=== PATIENT | female | born 1975 | race Caucasian/White ===

== ENCOUNTER 2017-09-01 15:52 | Emergency (ER) | payer MEDICAID ==
--- NOTE | 2017-09-01 16:15 | EDM.PDOC ---
ED HPI GENERAL MEDICAL PROBLEM - General Stated Complaint: CONFUSION,CHANGE IN TALKING Time Seen by Provider: 09/01/17 15:52 Source of Information: Reports: Patient, Family History Limitations: Reports: Altered Mental Status - History of Present Illness INITIAL COMMENTS - FREE TEXT/NARRATIVE: 41 y.o.w.f Just released from [facility] came to te ed with her SO deu to pain all over and feeling not herself, Pt's care was taken over by Dr. Hinojosa due to shift changes at 7 am 09/01/2017 Onset Date: 09/01/17 Onset Time: 05:00 Duration: Hour(s):, Getting Worse, Intermittent Location: Reports: Head Severity: Moderate Improves with: Reports: Rest Worsens with: Reports: Movement Context: Reports: Other (Drugs?) Associated Symptoms: Reports: Confusion - Related Data Allergies Allergy/AdvReac Type Severity Reaction Status Date / Time No Known Allergies Allergy Verified 09/01/17 16:19 Home Meds: Home Meds ALPRAZolam [Alprazolam] 1 mg PO TID 09/01/17 [History] Gabapentin [Neurontin] 800 mg PO QID 09/01/17 [History] QUEtiapine Fumarate [Quetiapine Fumarate] 200 mg PO DAILY 09/01/17 [History] ED ROS GENERAL - Review of Systems Review Of Systems: See Below Constitutional: Reports: Malaise, Weakness HEENT: Reports: No Symptoms Respiratory: Reports: No Symptoms Cardiovascular: Reports: No Symptoms Endocrine: Reports: No Symptoms GI/Abdominal: Reports: No Symptoms : Reports: No Symptoms Musculoskeletal: Reports: Muscle Pain (generalized ) Skin: Reports: No Symptoms Neurological: Reports: No Symptoms Psychiatric: Reports: Depression Hematologic/Lymphatic: Reports: No Symptoms Immunologic: Reports: No Symptoms - Physical Exam Exam: See Below Exam Limited By: Altered Mental Status General Appearance: Alert, No Apparent Distress, Lethargic, Obese Eye Exam: Bilateral Eye: Normal Inspection Ears: Normal External Exam, Normal Canal Nose: Normal Inspection, Normal Mucosa Throat/Mouth: Normal Lips, Normal Voice, No Airway Compromise, Other (dry mucosal membrane) Head Exam: Atraumatic, Normocephalic Neck: Normal Inspection, Supple, Non-Tender Respiratory/Chest: No Respiratory Distress, Lungs Clear, Normal Breath Sounds, No Accessory Muscle Use, Chest Non-Tender Cardiovascular: Normal Peripheral Pulses, Regular Rate, Rhythm, No Edema, No Rub GI/Abdominal: Normal Bowel Sounds, Soft, Non-Tender, No Organomegaly (Female) Exam: Deferred Rectal (Female) Exam: Deferred Neuro Exam (Abbreviated): Alert, Confused Back Exam: Normal Inspection, Full Range of Motion Extremities: Normal Inspection, Normal Range of Motion, Non-Tender Psychiatric: Depressed Mood, Flat Affect Skin Exam: Warm, Dry Course - Vital Signs Last Recorded V/S: Last Vital Signs Temp 36.5 C 09/01/17 15:52 Pulse 89 09/01/17 15:52 Resp 12 09/01/17 19:00 BP 101/57 L 09/01/17 19:00 Pulse Ox 100 09/01/17 19:00 - Orders/Labs/Meds Labs: Laboratory Tests 09/01/17 09/01/17 09/01/17 Range/Units 16:20 16:20 16:25 WBC 5.7 (4.5-12.0) X10-3/uL RBC 3.68 (3.23-5.20) x10(6)uL Hgb 11.5 (11.5-15.5) g/dL Hct 33.9 (30.0-51.3) % MCV 92.2 (80-96) fL MCH 31.4 (27.7-33.6) pg MCHC 34.0 (32.2-35.4) g/dL RDW 13.7 (11.5-15.5) % Plt Count 378 H (125-369) X10(3)uL MPV 6.6 L (7.4-10.4) fL Neut % (Auto) 53.3 (46-82) % Lymph % (Auto) 28.4 (13-37) % [place] % (Auto) 10.0 (4-12) % Eos % (Auto) 8 H (1.0-5.0) % Baso % (Auto) 1 (0-2) % Neut # (Auto) 3.1 (1.6-8.3) # Lymph # (Auto) 1.6 (0.6-5.0) # [place] # (Auto) 0.6 (0.0-1.3) # Eos # (Auto) 0.4 (0.0-0.8) # Baso # (Auto) 0.0 (0.0-0.2) # Sodium (135-145) mmol/L Potassium (3.5-5.3) mmol/L Chloride (100-110) mmol/L Carbon Dioxide (21-32) mmol/L BUN (7-18) mg/dL Creatinine (0.55-1.02) mg/dL Est Cr Clr Drug Dosing mL/min Estimated GFR (MDRD) (>60) BUN/Creatinine Ratio (9-20) Glucose (80-116) mg/dL Calcium (8.6-10.2) mg/dL HCG, Quant (<5) mIU/mL Urine Color Yellow (YELLOW) Urine Appearance Clear (CLEAR) Urine pH 5.0 (5.0-6.5) Ur Specific [place] 1.005 L (1.010-1.025) Urine Protein Negative (NEGATIVE) mg/dL Urine Glucose (UA) Normal (NEGATIVE) mg/dL Urine Ketones Negative (NEGATIVE) mg/dL Urine Occult Blood Negative (NEGATIVE) Urine Nitrite Negative (NEGATIVE) Urine Bilirubin Negative (NEGATIVE) Urine Urobilinogen Normal (NEGATIVE) mg/dL Ur Leukocyte Esterase Small H (NEGATIVE) Urine RBC 0-5 (0) Urine WBC 5-10 (0) Ur Squamous Epith Cells Few H (NS,R,O) Urine Bacteria Few H (NS) Salicylates (2.8-20.0) mg/dL Urine Opiates Screen Negative (NEGATIVE) Ur Oxycodone Screen Negative (NEGATIVE) Ur Propoxyphene Screen Negative (NEGATIVE) Acetaminophen (10-30) ug/mL Ur Barbituates Screen Negative (NEGATIVE) Ur Tricyclics Screen Negative (NEGATIVE) Ur Phencyclidine Scrn Negative (NEGATIVE) Ur Amphetamine Screen Negative (NEGATIVE) Urine MDMA Screen Negative (NEGATIVE) U Benzodiazepines Scrn Positive H (NEGATIVE) U Cocaine Metab Screen Negative (NEGATIVE) U Marijuana (THC) Screen Negative (NEGATIVE) Ethyl Alcohol (<0.03) % 09/01/17 09/01/17 Range/Units 16:25 16:25 WBC (4.5-12.0) X10-3/uL RBC (3.23-5.20) x10(6)uL Hgb (11.5-15.5) g/dL Hct (30.0-51.3) % MCV (80-96) fL MCH (27.7-33.6) pg MCHC (32.2-35.4) g/dL RDW (11.5-15.5) % Plt Count (125-369) X10(3)uL MPV (7.4-10.4) fL Neut % (Auto) (46-82) % Lymph % (Auto) (13-37) % [place] % (Auto) (4-12) % Eos % (Auto) (1.0-5.0) % Baso % (Auto) (0-2) % Neut # (Auto) (1.6-8.3) # Lymph # (Auto) (0.6-5.0) # [place] # (Auto) (0.0-1.3) # Eos # (Auto) (0.0-0.8) # Baso # (Auto) (0.0-0.2) # Sodium 137 (135-145) mmol/L Potassium 3.6 (3.5-5.3) mmol/L Chloride 99 L (100-110) mmol/L Carbon Dioxide 31 (21-32) mmol/L BUN 12 (7-18) mg/dL Creatinine 0.8 (0.55-1.02) mg/dL Est Cr Clr Drug Dosing 88.38 mL/min Estimated GFR (MDRD) > 60 (>60) BUN/Creatinine Ratio 15.0 (9-20) Glucose 88 (80-116) mg/dL Calcium 8.7 (8.6-10.2) mg/dL HCG, Quant < 1 L (<5) mIU/mL Urine Color (YELLOW) Urine Appearance (CLEAR) Urine pH (5.0-6.5) Ur Specific [place] (1.010-1.025) Urine Protein (NEGATIVE) mg/dL Urine Glucose (UA) (NEGATIVE) mg/dL Urine Ketones (NEGATIVE) mg/dL Urine Occult Blood (NEGATIVE) Urine Nitrite (NEGATIVE) Urine Bilirubin (NEGATIVE) Urine Urobilinogen (NEGATIVE) mg/dL Ur Leukocyte Esterase (NEGATIVE) Urine RBC (0) Urine WBC (0) Ur Squamous Epith Cells (NS,R,O) Urine Bacteria (NS) Salicylates 3.5 (2.8-20.0) mg/dL Urine Opiates Screen (NEGATIVE) Ur Oxycodone Screen (NEGATIVE) Ur Propoxyphene Screen (NEGATIVE) Acetaminophen < 2 L (10-30) ug/mL Ur Barbituates Screen (NEGATIVE) Ur Tricyclics Screen (NEGATIVE) Ur Phencyclidine Scrn (NEGATIVE) Ur Amphetamine Screen (NEGATIVE) Urine MDMA Screen (NEGATIVE) U Benzodiazepines Scrn (NEGATIVE) U Cocaine Metab Screen (NEGATIVE) U Marijuana (THC) Screen (NEGATIVE) Ethyl Alcohol < 0.03 (<0.03) % Meds: Medications Discontinued Medications Generic Name Dose Route Start Last Admin Trade Name Freq PRN Reason Stop Dose Admin Sodium Chloride 1,000 mls @ 999 mls/hr 09/01/17 16:16 09/01/17 17:10 Normal Saline IV 09/01/17 17:16 999 mls/hr .BOLUS ONE Administration Sodium Chloride 1,000 mls @ 999 mls/hr 09/01/17 18:46 09/01/17 18:11 Normal Saline IV 09/01/17 19:46 999 mls/hr .BOLUS ONE Administration Ketorolac Tromethamine 30 mg 09/01/17 16:18 09/01/17 18:56 Toradol IVPUSH 09/01/17 16:19 30 mg ONETIME ONE Administration Ketorolac Tromethamine Confirm 09/01/17 18:54 09/01/17 18:59 Toradol Administered 09/01/17 18:55 Not Given Dose 30 mg .ROUTE .STK-MED ONE Sodium Chloride 10 ml 09/01/17 17:11 09/01/17 17:10 Saline Flush FLUSH 10 ml ASDIRECTED PRN Administration Keep Vein Open Departure - Departure Time of Disposition: 20:05 Disposition: Home, Self-Care 01 Condition: Good - Discharge Information Referrals: PCP,None [Primary Care Provider] - Forms: ED Department Discharge Care Plan Goals: Follow up with regular
[2017-09-01] MEDS ORDERED: Sodium Chloride 0.9% 1,000 ML IV ONE ×2 (16:16→18:46)
[2017-09-01] MEDS ORDERED: Ketorolac 30 MG/ML SDV IVPUSH ONE (16:18)
[2017-09-01] MEDS ORDERED: Sodium Chloride 0.9% 10 ML Syringe FLUSH PRN (17:11)
[2017-09-01 17:19] LABS: ACETAMINOPHEN < 2 ug/mL (10-30)
[2017-09-01] MEDS ORDERED: Ketorolac 30 MG/ML SDV ONE (18:54)
--- NOTE | 2017-09-03 07:33 | ER ---
DATE SEEN: 09/01/2017 CHIEF COMPLAINT: Alteration of mental status. HISTORY OF PRESENT ILLNESS: This is a 41-year-old female, who was brought in because of garbled, confused speech and generalized body aches that was noticed today. [facility] for [facility] support related legal problems, but presented with not making sense and garbled speech. By the time I saw her, her mind was clearing up some. She denies taking any medication overdose and does report that she might have taken some Windex, but this was after she was noted to be confused. She denies taking an extra dose of Xanax or the Windex. She denies using drugs. PAST MEDICAL HISTORY: Allergic rhinitis. REVIEW OF SYSTEMS: She complains of right breast lump and pain. Denies fever, shortness of breath, seizures, rash, or sore throat. MEDICATIONS: 1. Gabapentin. 2. Lorazepam. PHYSICAL EXAMINATION: VITAL SIGNS: Blood pressure 101/56, respiratory rate is normal, oxygenation 94% on room air. HEENT negative. NECK: Supple. ABDOMEN: Soft. BREAST: There is tenderness on the right upper quadrant of the right breast and a small subcutaneous mass. NEUROLOGIC: Normal, except mild dysarthria. No focal deficits. Cranial nerves 2 through 12 grossly intact. LAB STUDIES: Normal labs including a negative test. Positive urine for benzodiazepines. A CT head showed inflammation of the sinuses. IMPRESSION: 1. Alteration of sensorium, improved. 2. Breast lump. PLAN: The patient was discharged after 1 L of normal saline. Advised to use ibuprofen, Tylenol for pain. I also advised her to make an appointment with her primary care physician within this week. She has just moved into town and numbers will be provided to call either [facility] or [place] to obtain primary care. /[phone] [id number]
== END 2017-09-01 20:05 | disposition home or self-care (01) ==
LOC: FB.ED 15:52
DX: R41.82 Altered mental status, unspecified (principal); N63.11 Unspecified lump in the right breast, upper outer quadrant; Z79.899 Other long term (current) drug therapy
CPT/HCPCS: 36415; 70450; 80048; 80305; 81001; 84702; 85025; 96361; 96374; 99285; G0480; J1885; J7030; J7050

== ENCOUNTER 2018-04-26 15:16 | Emergency (ER) | payer MEDICAID ==
[2018-04-26] MEDS ORDERED: HYDROmorphone 2 MG/ML SDV IM ONE (15:31)
--- NOTE | 2018-04-26 15:37 | EDM.PDOC ---
ED HPI GENERAL MEDICAL PROBLEM - General Time Seen by Provider: 04/26/18 15:16 Source of Information: Reports: Patient, Family History Limitations: Reports: No Limitations - History of Present Illness INITIAL COMMENTS - FREE TEXT/NARRATIVE: 42 y.o.w.f came with her SO to the ed because of blood extruding from her right nipple after undergoing a breast Bx last Thursday at . She has extreme right breast tenderness as well. She was told she has most likely advance breast CA with LK at her right axilla, pathology results are pending, however. No N/V/D no Dizziness or any other acute medical issues. BP 115/54 RR 18 Pulse ox 98% on RA Temp 37.3 Pulse 110 Onset Date: 04/23/18 Onset Time: 21:00 Duration: Day(s):, Intermittent Location: Reports: Chest (right breast) Quality: Reports: Burning, Dull, Stabbing, Throbbing Severity: Moderate Improves with: Reports: Cold Therapy, Medication Worsens with: Reports: Movement Context: Reports: Trauma (right brest Bx 04/23/2018) Associated Symptoms: Reports: Other (blod was extruding for her right nipple.) - Related Data Allergies Allergy/AdvReac Type Severity Reaction Status Date / Time No Known Allergies Allergy Verified 04/26/18 15:33 Home Meds: Home Meds ALPRAZolam [Alprazolam] 1 mg PO TID 09/01/17 [History] Gabapentin [Neurontin] 800 mg PO QID 09/01/17 [History] Acetaminophen/oxyCODONE [Percocet 325-5 MG] 1 each PO Q6HR PRN #14 tab 04/26/18 [Rx] PARoxetine HCl [Paxil] 40 mg PO BID 04/26/18 [History] 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: Musculoskeletal History: Reports: Back Pain, Chronic Psychiatric History: Reports: Anxiety, Depression Social & Family History - Family History Family Medical History: Noncontributory - Caffeine Use Caffeine Use: Reports: Soda ED ROS GENERAL - Review of Systems Review Of Systems: See Below Constitutional: Reports: No Symptoms HEENT: Reports: No Symptoms Respiratory: Reports: No Symptoms Cardiovascular: Reports: No Symptoms Endocrine: Reports: No Symptoms GI/Abdominal: Reports: No Symptoms : Reports: No Symptoms Musculoskeletal: Reports: No Symptoms Skin: Reports: No Symptoms Neurological: Reports: No Symptoms Psychiatric: Reports: No Symptoms Hematologic/Lymphatic: Reports: No Symptoms Immunologic: Reports: No Symptoms ED EXAM, SKIN/RASH Exam: See Below Exam Limited By: No Limitations General Appearance: Alert, WD/WN, Moderate Distress Eye Exam: Bilateral Eye: Normal Inspection Ears: Normal External Exam Nose: Normal Inspection Throat/Mouth: Normal Inspection Head: Atraumatic, Normocephalic Neck: Normal Inspection, Supple, Non-Tender Respiratory/Chest: No Respiratory Distress, Lungs Clear, Normal Breath Sounds, Chest Non-Tender Cardiovascular: Normal Peripheral Pulses, Regular Rate, Rhythm Peripheral Pulses: 1+: Brachial (L) GI/Abdominal: Normal Bowel Sounds, Soft, Non-Tender, No Organomegaly (Female) Exam: Deferred Rectal (Female) Exam: Deferred Back Exam: Normal Inspection Extremities: Normal Inspection, Normal Range of Motion Neurological: Alert, Oriented, CN II-XII Intact, Normal Cognition, Normal Gait Psychiatric: Normal Affect, Tearful Skin: Warm, Dry, Wound/Incision (S/P right breast Bx 04/23/2018) Location, Skin: Other (right lat breast) Lymphatic: No Adenopathy Course - Vital Signs Text/Narrative:: 42 y.o.w.f came with her SO to the ed because of blood extruding from her right nipple after undergoing a breast Bx last Thursday at . She has extreme right breast tenderness as well. She was told she has most likely advance breast CA with LK at her right axilla, pathology results are pending, however. No N/V/D no Dizziness or any other acute medical issues. BP 115/54 RR 18 Pulse ox 98% on RA Temp 37.3 Pulse 110 PE: WNWD W F S/P right breast Bx, former smoker. Labs: CBC Nl except HGB was 11.3 K 3.4 UDT was pos for Benzos( pt is on prescribed benzos), BUN 6 Impression: right breast pain/tenderness S/P right breast Bx 05/01/2018, SQ hematoma left breast Tx: Dilaudid Reexam: Improved 3.32 pm Consultation: Dr. Villa, Hospitalist: Pt is a IVD abuser, asked me to a UDS to check for Amphetamines Plan: D/C with instructions Last Recorded V/S: Last Vital Signs Temp 37.3 C 04/26/18 15:38 Pulse 110 H 04/26/18 15:38 Resp 18 04/26/18 15:38 BP 115/54 L 04/26/18 15:38 Pulse Ox - Orders/Labs/Meds Labs: Laboratory Tests 04/26/18 04/26/18 04/26/18 Range/Units 16:20 16:20 16:20 WBC 11.1 (4.5-12.0) X10-3/uL RBC 3.68 (3.23-5.20) x10(6)uL Hgb 11.3 L (11.5-15.5) g/dL Hct 32.9 (30.0-51.3) % MCV 89.4 (80-96) fL MCH 30.9 (27.7-33.6) pg MCHC 34.5 (32.2-35.4) g/dL RDW 13.8 (11.5-15.5) % Plt Count 472 H (125-369) X10(3)uL PT 9.4 (8.7-11.1) INR 0.97 (0.89-1.13) Sodium 137 (135-145) mmol/L Potassium 3.4 L (3.5-5.3) mmol/L Chloride 101 D (100-110) mmol/L Carbon Dioxide 27 (21-32) mmol/L BUN 6 L D (7-18) mg/dL Creatinine 0.7 (0.55-1.02) mg/dL Est Cr Clr Drug Dosing TNP Estimated GFR (MDRD) > 60 (>60) BUN/Creatinine Ratio 8.6 L (9-20) Glucose 111 (80-116) mg/dL Calcium 9.0 (8.6-10.2) mg/dL Urine Opiates Screen (NEGATIVE) Ur Oxycodone Screen (NEGATIVE) Ur Propoxyphene Screen (NEGATIVE) Ur Barbituates Screen (NEGATIVE) Ur Tricyclics Screen (NEGATIVE) Ur Phencyclidine Scrn (NEGATIVE) Ur Amphetamine Screen (NEGATIVE) Urine MDMA Screen (NEGATIVE) U Benzodiazepines Scrn (NEGATIVE) U Cocaine Metab Screen (NEGATIVE) U Marijuana (THC) Screen (NEGATIVE) 04/26/18 Range/Units 17:10 WBC (4.5-12.0) X10-3/uL RBC (3.23-5.20) x10(6)uL Hgb (11.5-15.5) g/dL Hct (30.0-51.3) % MCV (80-96) fL MCH (27.7-33.6) pg MCHC (32.2-35.4) g/dL RDW (11.5-15.5) % Plt Count (125-369) X10(3)uL PT (8.7-11.1) INR (0.89-1.13) Sodium (135-145) mmol/L Potassium (3.5-5.3) mmol/L Chloride (100-110) mmol/L Carbon Dioxide (21-32) mmol/L BUN (7-18) mg/dL Creatinine (0.55-1.02) mg/dL Est Cr Clr Drug Dosing Estimated GFR (MDRD) (>60) BUN/Creatinine Ratio (9-20) Glucose (80-116) mg/dL Calcium (8.6-10.2) mg/dL Urine Opiates Screen Negative (NEGATIVE) Ur Oxycodone Screen Negative (NEGATIVE) Ur Propoxyphene Screen Negative (NEGATIVE) Ur Barbituates Screen Negative (NEGATIVE) Ur Tricyclics Screen Negative (NEGATIVE) Ur Phencyclidine Scrn Negative (NEGATIVE) Ur Amphetamine Screen Negative (NEGATIVE) Urine MDMA Screen Negative (NEGATIVE) U Benzodiazepines Scrn Positive H (NEGATIVE) U Cocaine Metab Screen Negative (NEGATIVE) U Marijuana (THC) Screen Negative (NEGATIVE) Meds: Medications Discontinued Medications Generic Name Dose Route Start Last Admin Trade Name Freq PRN Reason Stop Dose Admin Hydromorphone HCl 1 mg 04/26/18 15:31 04/26/18 16:11 Dilaudid IM 04/26/18 15:32 1 mg ONETIME ONE Administration Departure - Departure Time of Disposition: 16:55 Disposition: Home, Self-Care 01 Condition: Good Clinical Impression: Hematoma - Discharge Information Prescriptions: Acetaminophen/oxyCODONE [Percocet 325-5 MG] 1 each PO Q6HR PRN #14 tab PRN Reason: for severe pain only Referrals: Elina Mason PA-C [Primary Care Provider] - Forms: ED Department Discharge Additional Instructions: Please take Percocet for severe pain, Motrin for mod pain, please apply ice to the affected area, please f/u with your PMD, come back if your symptoms get worse acutely.
== END 2018-04-26 17:15 | disposition home or self-care (01) ==
LOC: FB.ED 15:16
DX: L76.31 Postprocedural hematoma of skin and subcutaneous tissue following a dermatologic procedure (principal); F41.9 Anxiety disorder, unspecified; F32.9 Major depressive disorder, single episode, unspecified; Z79.899 Other long term (current) drug therapy
CPT/HCPCS: 36415; 80048; 80305; 85027; 85610; 96372; 99283; J1170

== ENCOUNTER 2018-05-10 16:58 | Emergency (ER) | payer MEDICAID ==
--- NOTE | 2018-05-28 12:58 | EDM.PDOC ---
ED HPI GENERAL MEDICAL PROBLEM - General Chief Complaint: General Stated Complaint: BREAST CA AND VERY PAINFUL RT BREAST Time Seen by Provider: 05/10/18 17:05 Source of Information: Reports: Patient History Limitations: Reports: No Limitations - History of Present Illness INITIAL COMMENTS - FREE TEXT/NARRATIVE: Appendectomy is-year-old woman was diagnosed on right breast cancer stage III on breast biopsy 04/23/18, and was seen 3 days later for right breast nipple bleeding and pain. He has a previous documented history of chemical abuse and is a smoker. Today she comes in with increased breast discomfort more swelling without fever shortness breath other chest pain back pain or pain jaw pain neck pain or history of any cardiac events or palpitation,r irregular heartbeat, lightheadedness, near syncope or syncope. She denies nausea and vomiting diarrhea and epigastric or other gastrointestinal symptoms. She denies symptoms. 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: Musculoskeletal History: Reports: Back Pain, Chronic Psychiatric History: Reports: Anxiety, Depression Oncologic (Cancer) History: Reports: Breast - Past Surgical History Oncologic Surgical History: Reports: Biopsy of Breast Social & Family History - Family History Family Medical History: Noncontributory - Caffeine Use Caffeine Use: Reports: Soda ED ROS GENERAL - Review of Systems Review Of Systems: See Below Constitutional: Reports: No Symptoms HEENT: Reports: No Symptoms Respiratory: Reports: No Symptoms Cardiovascular: Reports: No Symptoms Endocrine: Reports: No Symptoms GI/Abdominal: Reports: No Symptoms : Reports: No Symptoms Musculoskeletal: Reports: Other (Right chest wall pain increased tenderness and swelling without fever or increased warmth) Skin: Reports: No Symptoms Neurological: Reports: No Symptoms Psychiatric: Reports: No Symptoms Hematologic/Lymphatic: Reports: No Symptoms Immunologic: Reports: No Symptoms ED EXAM, GENERAL - Physical Exam Exam: See Below Free Text/Narrative:: Patient's well-nourished well muscled and has marked pain right breast with moderate associated swelling. Exam Limited By: No Limitations General Appearance: Alert, WD/WN, Moderate Distress Eye Exam: Bilateral Eye: Normal Inspection Ears: Normal External Exam, Normal Canal, Hearing Grossly Normal, Normal TMs Ear Exam: Bilateral Ear: Auricle Normal, Canal Normal, TM normal Nose: Normal Inspection Throat/Mouth: Normal Inspection, Normal Lips, Normal Teeth, Normal Gums, Normal Oropharynx, Normal Voice Head: Atraumatic, Normocephalic Neck: Normal Inspection, Supple, Non-Tender, Full Range of Motion Respiratory/Chest: No Respiratory Distress, Lungs Clear, Normal Breath Sounds, No Accessory Muscle Use, Other (Tender right chest over right breast biopsy site with moderate swelling and without increased temperature the dermis and without erythema) Cardiovascular: Normal Peripheral Pulses, Regular Rate, Rhythm, No Edema, No Gallop, No JVD, No Murmur, No Rub Peripheral Pulses: 1+: Dorsalis Pedis (L), Dorsalis Pedis (R) GI/Abdominal: Normal Bowel Sounds, Soft, Non-Tender, No Organomegaly, No Distention, No Abnormal Bruit, No Mass (Female) Exam: Deferred Rectal (Female) Exam: Deferred Back Exam: Normal Inspection Extremities: Normal Inspection, Normal Range of Motion, Non-Tender, No Pedal Edema, Normal Capillary Refill Neurological: Alert, Oriented, CN II-XII Intact, Normal Cognition, Normal Gait, Normal Reflexes, No Motor/Sensory Deficits Psychiatric: Normal Affect, Normal Mood Skin Exam: Warm, Dry, Intact, Normal Color, No Rash Lymphatic: No Adenopathy Course - Vital Signs Last Recorded V/S: Last Vital Signs Temp 36.6 C 05/10/18 17:00 Pulse 110 H 05/10/18 17:00 Resp 17 05/10/18 17:00 BP 121/93 H 05/10/18 17:00 Pulse Ox 98 05/10/18 17:00 Departure - Departure Time of Disposition: 17:35 (Right breast tenderness secondary to hematoma and associated swelling from previous breast biopsy and breast cancer stage III.) Disposition: Home, Self-Care 01 Condition: Fair Clinical Impression: Right-sided chest wall pain Breast cancer Qualifiers: Breast location: unspecified site of breast Estrogen receptor status: unspecified Patient sex: female Laterality: right Qualified Code(s): C50.911 - Malignant neoplasm of unspecified site of right female breast - Discharge Information *PRESCRIPTION DRUG MONITORING PROGRAM REVIEWED*: Not Applicable *COPY OF PRESCRIPTION DRUG MONITORING REPORT IN PATIENT ARPIT: Not Applicable Prescriptions: oxyCODONE HCl/Acetaminophen [Percocet 5-325 mg Tablet] 1 each PO Q4HR PRN #25 tablet PRN Reason: breast cancer pain Referrals: Jada Wolfe INTERMEDIATE MANAGER [Primary Care Provider] - Forms: ED Department Discharge Additional Instructions: for your cancer pain I have prescribed Percocet. Normally I am very careful and do not prescribe Percocet. However, with your cancer you pain is very real. I have prescribed Percocet to break that pain cycle for you. Also I prescribed Nicorette lozenge and uses as directed. And NicoDerm patch. Apply daily. Keep your [facility] cancer appointment on Thursday, in 4 days. With any narcotic you will have the problem of constipation. You can buy [id number] medication with senna/sennosides-take daily as directed. follow up with your MD to make arrangement for pain treatment. The [facility] will be a good source of info regarding pain therapy options for you. I have prescribed ash derm patches and nicorrette lozenges. Take as directed
== END 2018-05-10 17:30 | disposition home or self-care (01) ==
LOC: FB.ED 16:58
DX: C50.911 Malignant neoplasm of unspecified site of right female breast (principal); F41.9 Anxiety disorder, unspecified; F32.9 Major depressive disorder, single episode, unspecified; Z79.899 Other long term (current) drug therapy
CPT/HCPCS: 99283

== ENCOUNTER 2018-06-02 12:52 | Emergency (ER) | payer MEDICAID ==
[2018-06-02] MEDS ORDERED: Sodium Chloride 0.9% 1,000 ML IV ONE (13:43)
--- NOTE | 2018-06-02 13:48 | EDM.PDOC ---
ED HPI GENERAL MEDICAL PROBLEM - General Chief Complaint: Back Pain or Injury Stated Complaint: PAIN Time Seen by Provider: 06/02/18 12:55 Source of Information: Reports: Patient History Limitations: Reports: No Limitations - History of Present Illness INITIAL COMMENTS - FREE TEXT/NARRATIVE: 42 y.o.w.f with a h/o right breast CA-not metastatic-, S/P chemo Tx on 06/02/2018 , came to the ED due to right breast pain, and gen body ache. Pt was given a prescription for Gabapentin and Hydrocodone, which both made her sick and she discarded those meds at a police station. She was without any pain meds in the past 4 days. Pt denies Trauma. Pt says, oxycodone is the "only meds working for her". Pt feels weak, had many loose BMs after her Chemo. Denies "food poisoning". No sick contact. At this time, pt denies N/V/D. C/O right breast and gen body ache only. BP 113/68 Pulse 102 RR 18 Pulse ox 97% on RA, Temp 36.5 Onset Date: 05/31/18 Onset Time: 06:00 Duration: Day(s):, Intermittent Location: Reports: Other (right breast pain) Quality: Reports: Burning, Dull, Pressure, Throbbing Severity: Moderate Improves with: Reports: Medication Worsens with: Reports: Movement Context: Reports: Other (right breast CA) Associated Symptoms: Reports: Fever/Chills, Loss of Appetite, Malaise, Nausea/ Vomiting, Weakness Treatments MEDICAL ANTHROPOLOGIST: Reports: Acetaminophen (makes her to vomit) R breast, lower back Pain Score (Numeric/FACES): 8 - Related Data Allergies Allergy/AdvReac Type Severity Reaction Status Date / Time No Known Allergies Allergy Verified 04/26/18 15:33 Home Meds: Home Meds ALPRAZolam [Alprazolam] 1 mg PO TID 09/01/17 [History] Gabapentin [Neurontin] 800 mg PO QID 09/01/17 [History] PARoxetine HCl [Paxil] 40 mg PO DAILY 04/26/18 [History] oxyCODONE ER [OxyCONTIN] 10 mg PO Q12H PRN #4 tab.er 06/02/18 [Rx] Past Medical History Genitourinary History: Reports: UTI, Recurrent AS400 ADMINISTRATOR History: Reports: Other AS400 ADMINISTRATOR History: Musculoskeletal History: Reports: Back Pain, Chronic, Fracture Other Musculoskeletal History: hx fx R arm Neurological History: Reports: Neuropathy, Peripheral, Seizure Other Neuro History: R nerve pain from previous foot injury Psychiatric History: Reports: Anxiety, Depression, Panic Attack Oncologic (Cancer) History: Reports: Breast - Past Surgical History Head Surgeries/Procedures: Reports: None Female Surgical History: Reports: Breast Biopsy Musculoskeletal Surgical History: Reports: Other (See Below) Other Musculoskeletal Surgeries/Procedures:: R foot surgery Oncologic Surgical History: Reports: Biopsy of Breast Social & Family History - Family History Family Medical History: Noncontributory - Tobacco Use Smoking Status *Q: Current Every Day Smoker Years of Tobacco use: 24 Packs/Tins Daily: 0.5 - Caffeine Use Caffeine Use: Reports: Coffee, Soda - Recreational Drug Use Recreational Drug Use: No ED ROS GENERAL - Review of Systems Review Of Systems: See Below Constitutional: Reports: Weakness HEENT: Reports: No Symptoms Respiratory: Reports: No Symptoms Cardiovascular: Reports: No Symptoms Endocrine: Reports: No Symptoms GI/Abdominal: Reports: Diarrhea, Decreased Appetite, Nausea, Vomiting : Reports: No Symptoms Musculoskeletal: Reports: No Symptoms Skin: Reports: No Symptoms Neurological: Reports: No Symptoms Psychiatric: Reports: No Symptoms Hematologic/Lymphatic: Reports: No Symptoms Immunologic: Reports: No Symptoms ED EXAM, GENERAL - Physical Exam Exam: See Below Exam Limited By: Other (gen body ache, right breat pain) General Appearance: Alert, WD/WN, Lethargic Eye Exam: Bilateral Eye: Normal Inspection Ears: Normal External Exam Ear Exam: Bilateral Ear: Auricle Normal Nose: Normal Inspection Throat/Mouth: Normal Lips, Normal Voice, No Airway Compromise, Other (dry mucosal membrane) Head: Atraumatic, Normocephalic Neck: Normal Inspection, Supple, Non-Tender, Full Range of Motion Respiratory/Chest: No Respiratory Distress, Lungs Clear, Normal Breath Sounds, No Accessory Muscle Use, Chest Non-Tender Cardiovascular: Normal Peripheral Pulses, Regular Rate, Rhythm, No Edema, No Gallop, No JVD, No Murmur Peripheral Pulses: 1+: Carotid (L) GI/Abdominal: Normal Bowel Sounds, Soft, Non-Tender Neurological: Alert Psychiatric: Normal Affect, Normal Mood Skin Exam: Warm, Dry, Intact, Normal Color, No Rash Lymphatic: No Adenopathy Course - Vital Signs Text/Narrative:: 42 y.o.w.f with a h/o right breast CA-not metastatic-, S/P chemo Tx on 06/02/2018 , came to the ED due to right breast pain, and gen body ache. Pt was given a prescription for Gabapentin and Hydrocodone, which both made her sick and she discarded those meds at a police station. She was without any pain meds in the past 4 days. Pt denies Trauma. Pt says, oxycodone is the "only meds working for her". Pt feels weak, had many loose BMs after her Chemo. Denies "food poisoning". No sick contact. At this time, pt denies N/V/D. C/O right breast and gen body ache only. BP 113/68 Pulse 102 RR 18 Pulse ox 97% on RA, Temp 36.5 PE: WNWD W F with right breast CA came to the ED due to right breast pain and gen body ache. No dysuria Labs: CBC and BMP were nl except: HGB was 10.8 BUN was 3 Ca was 8.5 and CRP was 1.3 Lactic acid 1.3 UA: pos for Leucocyte esterase Impression: Breast CA, Breast pain, gen body ache Tx: NS bolus, Zofran and Protonix. Oxycodone as a prescription Reexam: Improved, Pt is able to drink water 4.44 pm Consultation: Dr. Pedroza, Oncologist, [place]: Oxycodone is ok for a few day till she can see her PMD Plan: D/C with instruction Last Recorded V/S: Last Vital Signs Temp 36.5 C 06/02/18 12:55 Pulse 101 H 06/02/18 17:00 Resp 18 06/02/18 17:00 BP 130/73 06/02/18 17:00 Pulse Ox 100 06/02/18 17:00 - Orders/Labs/Meds Orders: Active Orders 24 hr Category Date Time Status CULTURE BLOOD [BC] Urgent Lab 06/02/18 14:00 Received CULTURE BLOOD [BC] Urgent Lab 06/02/18 14:05 Received LACTOFERRIN, FECAL, QUANT Routine Lab 06/02/18 13:43 Ordered Blood Culture x2 Reflex Set [OM.PC] Urgent Oth 06/02/18 13:46 Ordered Labs: Laboratory Tests 06/02/18 06/02/18 06/02/18 Range/Units 14:00 14:00 14:00 WBC 7.1 (4.5-12.0) X10-3/uL RBC 3.59 (3.23-5.20) x10(6)uL Hgb 10.8 L (11.5-15.5) g/dL Hct 31.5 (30.0-51.3) % MCV 87.8 (80-96) fL MCH 29.9 (27.7-33.6) pg MCHC 34.1 (32.2-35.4) g/dL RDW 14.2 (11.5-15.5) % Plt Count 379 H (125-369) X10(3)uL MPV 6.7 L (7.4-10.4) fL Neut % (Auto) 70.5 (46-82) % Lymph % (Auto) 15.2 (13-37) % [place] % (Auto) 11.3 (4-12) % Eos % (Auto) 2 (1.0-5.0) % Baso % (Auto) 1 (0-2) % Neut # (Auto) 5.0 (1.6-8.3) # Lymph # (Auto) 1.1 (0.6-5.0) # [place] # (Auto) 0.8 (0.0-1.3) # Eos # (Auto) 0.2 (0.0-0.8) # Baso # (Auto) 0.0 (0.0-0.2) # Sodium 138 (135-145) mmol/L Potassium 3.7 (3.5-5.3) mmol/L Chloride 100 (100-110) mmol/L Carbon Dioxide 28 (21-32) mmol/L BUN 3 L (7-18) mg/dL Creatinine 0.8 (0.55-1.02) mg/dL Est Cr Clr Drug Dosing 90.90 mL/min Estimated GFR (MDRD) > 60 (>60) BUN/Creatinine Ratio 3.8 L (9-20) Glucose 112 (80-116) mg/dL Lactic Acid (0.4-2.2) mmol/L Calcium 8.5 L (8.6-10.2) mg/dL Magnesium 2.1 (1.8-2.5) mg/dL C-Reactive Protein 1.3 H (0.5-0.9) mg/dL Urine Color (YELLOW) Urine Appearance (CLEAR) Urine pH (5.0-6.5) Ur Specific [place] (1.010-1.025) Urine Protein (NEGATIVE) mg/dL Urine Glucose (UA) (NORMAL) mg/dL Urine Ketones (NEGATIVE) mg/dL Urine Occult Blood (NEGATIVE) Urine Nitrite (NEGATIVE) Urine Bilirubin (NEGATIVE) Urine Urobilinogen (NEGATIVE) mg/dL Ur Leukocyte Esterase (NEGATIVE) 06/02/18 06/02/18 Range/Units 14:00 15:55 WBC (4.5-12.0) X10-3/uL RBC (3.23-5.20) x10(6)uL Hgb (11.5-15.5) g/dL Hct (30.0-51.3) % MCV (80-96) fL MCH (27.7-33.6) pg MCHC (32.2-35.4) g/dL RDW (11.5-15.5) % Plt Count (125-369) X10(3)uL MPV (7.4-10.4) fL Neut % (Auto) (46-82) % Lymph % (Auto) (13-37) % [place] % (Auto) (4-12) % Eos % (Auto) (1.0-5.0) % Baso % (Auto) (0-2) % Neut # (Auto) (1.6-8.3) # Lymph # (Auto) (0.6-5.0) # [place] # (Auto) (0.0-1.3) # Eos # (Auto) (0.0-0.8) # Baso # (Auto) (0.0-0.2) # Sodium (135-145) mmol/L Potassium (3.5-5.3) mmol/L Chloride (100-110) mmol/L Carbon Dioxide (21-32) mmol/L BUN (7-18) mg/dL Creatinine (0.55-1.02) mg/dL Est Cr Clr Drug Dosing mL/min Estimated GFR (MDRD) (>60) BUN/Creatinine Ratio (9-20) Glucose (80-116) mg/dL Lactic Acid 1.3 (0.4-2.2) mmol/L Calcium (8.6-10.2) mg/dL Magnesium (1.8-2.5) mg/dL C-Reactive Protein (0.5-0.9) mg/dL Urine Color Yellow (YELLOW) Urine Appearance Slightly cloudy (CLEAR) Urine pH 5.0 (5.0-6.5) Ur Specific [place] 1.020 (1.010-1.025) Urine Protein Negative (NEGATIVE) mg/dL Urine Glucose (UA) Normal (NORMAL) mg/dL Urine Ketones Negative (NEGATIVE) mg/dL Urine Occult Blood Negative (NEGATIVE) Urine Nitrite Negative (NEGATIVE) Urine Bilirubin Negative (NEGATIVE) Urine Urobilinogen Normal (NEGATIVE) mg/dL Ur Leukocyte Esterase Moderate H (NEGATIVE) Meds: Medications Discontinued Medications Generic Name Dose Route Start Last Admin Trade Name Freq PRN Reason Stop Dose Admin Sodium Chloride 1,000 mls @ 999 mls/min 06/02/18 13:43 06/02/18 14:56 Normal Saline IV 06/02/18 13:44 999 mls/min .BOLUS ONE Administration Ondansetron HCl 8 mg 06/02/18 14:10 06/02/18 14:58 Zofran IVPUSH 06/02/18 14:11 8 mg ONETIME ONE Administration Pantoprazole Sodium 40 mg 06/02/18 14:10 06/02/18 14:58 Protonix Iv IVPUSH 06/02/18 14:11 40 mg ONETIME ONE Administration Departure - Departure Time of Disposition: 17:07 Disposition: Home, Self-Care 01 Condition: Good Clinical Impression: Breast CA Qualifiers: Breast location: unspecified site of breast Estrogen receptor status: unspecified Patient sex: female Laterality: right Qualified Code(s): C50.911 - Malignant neoplasm of unspecified site of right female breast - Discharge Information Prescriptions: oxyCODONE ER [OxyCONTIN] 10 mg PO Q12H PRN #4 tab.er PRN Reason: for severe pain only Referrals: Trent Ingram MD [Primary Care Provider] - Forms: ED Department Discharge Additional Instructions: Please cont your current meds, please take Oxycodone for severe pain only, please f/u with your oncologist in 1-2 days, please come back if your symptoms get worse acutely. - My Orders Last 24 Hours: My Active Orders 06/02/18 13:43 LACTOFERRIN, FECAL, QUANT Routine 06/02/18 13:46 Blood Culture x2 Reflex Set [OM.PC] Urgent 06/02/18 14:00 CULTURE BLOOD [BC] Urgent 06/02/18 14:05 CULTURE BLOOD [BC] Urgent - Assessment/Plan Last 24 Hours: My Active Orders 06/02/18 13:43 LACTOFERRIN, FECAL, QUANT Routine 06/02/18 13:46 Blood Culture x2 Reflex Set [OM.PC] Urgent 06/02/18 14:00 CULTURE BLOOD [BC] Urgent 06/02/18 14:05 CULTURE BLOOD [BC] Urgent
[2018-06-02] MEDS ORDERED: Ondansetron 4 MG/2 ML SDV IVPUSH ONE (14:10)
[2018-06-02] MEDS ORDERED: Pantoprazole 40 MG Vial IVPUSH ONE (14:10)
== END 2018-06-02 17:20 | disposition home or self-care (01) ==
LOC: FB.ED 12:52
DX: C50.911 Malignant neoplasm of unspecified site of right female breast (principal); F41.9 Anxiety disorder, unspecified; F32.9 Major depressive disorder, single episode, unspecified; F17.210 Nicotine dependence, cigarettes, uncomplicated; Z79.899 Other long term (current) drug therapy
CPT/HCPCS: 36415; 80048; 81003; 83605; 83735; 85025; 86140; 87040; 96361; 96374; 96375; 99283; C9113; J2405; J7030